=== PATIENT | female | born 2000 | race Hispanic/Latino ===

== ENCOUNTER 2020-05-22 15:13 | Emergency (ER) | payer SELFPAY ==
[~2020-05-22] VITALS: Ht 160 cm; Wt 52.2 kg
[2020-05-22] MEDS ORDERED: PENICILLIN G BENZATHINE LA 1.2 MU TBX IM STA (15:28)
--- NOTE | 2020-05-22 15:29 | Emergency Department Note ---
History of Present Illnes History of Present Illness Chief Complaint: General Medicine Complaints History of Present Illness This is a 19 year old female arrives to the ED with complaints of fever and sore throat for several days, denies any drooling, shortness of breath or cough. Historian: Patient Arrival Mode: Car Onset (how long ago): day(s) Severity: mild Duration (how long): day(s) Progression: unchanged Chronicity: new Associated symptoms: Reports fever/chills; Denies shortness of breath Past Medical/Family History Physician Review I have reviewed the patient's past medical and family history. Any updates have been documented here. Past Medical History Recent Fever: Yes Clinical Suspicion of Infectio: Yes New/Unexplained Change in Ment: No Past Medical History: None Other Medical History: IRREGULAR HEART BEAT Past Surgical History: None Social History Smoking Cessation: Never Smoker Counseling Performed: No Alcohol Use: None Any Illegal Drug Use: No Physically hurt or threatened: No Other Last Tetanus: Y Any Pre-Existing Lines (PICC,: No (.) Review of Systems Review of Systems Constitutional: Reports no symptoms EENTM: Reports as per HPI, Reports throat pain Cardiovascular: Reports no symptoms Respiratory: Reports no symptoms Gastrointestinal: Reports no symptoms Genitourinary: Reports no symptoms Musculoskeletal: Reports no symptoms Integumentary: Reports no symptoms Neurological: Reports no symptoms Psychological: Reports no symptoms Endocrine: Reports no symptoms Hematological/Lymphatic: Reports no symptoms Physical Exam Related Data Allergies: Coded Allergies: No Known Allergies (Unverified , 07/24/15) Triage Vital Signs Vital Signs Date Time Temp Pulse Resp B/P (MAP) Pulse Ox O2 Delivery O2 Flow Rate FiO2 05/22/20 15:20 99.9 105 20 117/69 98 Room Air Vital signs reviewed: Yes Physical Exam CONSTITUTIONAL Constitutional: Present well-developed, Present well-nourished HENT HENT: Present normocephalic, Present atraumatic, Present oropharynx clear/moist, Present nose normal, Present tonsillar excudate HENT L/R: Present left ext ear normal, Present right ext ear normal EYES Eyes: Reports PERRL, Reports conjunctivae normal NECK Neck: Present ROM normal PULMONARY Pulmonary: Present effort normal, Present breath sounds normal CARDIOVASCULAR Cardiovascular: Present regular rhythm, Present heart sounds normal, Present capillary refill normal, Present normal rate GASTROINTESTINAL Abdominal: Present soft, Present nontender, Present bowel sounds normal GENITOURINARY Genitourinary: Present exam deferred SKIN Skin: Present warm, Present dry MUSCULOSKELETAL Musculoskeletal: Present ROM normal NEUROLOGICAL Neurological: Present alert, Present oriented x 3, Present no gross motor or sensory deficits PSYCHOLOGICAL Psychological: Present mood/affect normal, Present judgement normal Assessment & Plan Medical Decision Making MDM No history of immunocompromise. Nontoxic appearance. Patient euvolemic with no trismus. No airway compromise. Able to tolerate PO. Given History and Exam I have low suspicion for this presentation being caused by CARTOGRAPHIC DESIGNER, RPA, Ludwigs, Epiglottitis or Bacterial Tracheitis, EBV, acute HIV, Strep throat. Rx: Conservative care Disposition: Discharge home with prompt outpatient PCP follow up; return precautions discussed. HPI Denies cough. No measured fevers. No steroid use or immunosuppressive state. No pus from mouth. Tolerating secretions. Otherwise well with no changes to vision, no dysphonia, no dysphagia. Assessment & Plan Final Impression: (1) Strep pharyngitis Depart Disposition: HOME, SELF-CARE Last Vital Signs Date Time Temp Pulse Resp B/P (MAP) Pulse Ox O2 Delivery O2 Flow Rate FiO2 05/22/20 15:20 99.9 105 20 117/69 98 Room Air Home Meds Active Scripts Dexamethasone (DEXAMETHASONE) 4 Mg Tablet, 10 MG PO ONCE, #1 TAB Prov:JOSE KOEHLER DO 05/22/20 Acetaminophen/Codeine* (TYLENOL # 3*) 1 Ea Tab, 1 TAB PO Q8HR PRN for COUGH, #12 Prov:JOSE KOEHLER DO 05/22/20 JOSE KOEHLER DO May 22, 2020 15:29
[2020-05-22] MEDS ORDERED: TYLENOL # 31 EA PO (15:31)
[2020-05-22] MEDS ORDERED: DEXAMETHASONE4 MG PO (15:31)
[2020-05-22] MEDS ORDERED: PENICILLIN G BENZATHINE LA 1.2 MU TBX ONE (15:40)
--- OUTSIDE RECORDS SUMMARY | 2020-05-22 15:41 | XMS REPORT | Clinical Summary ---
Author Author [facility] Organization [facility] Address Unknown Phone Unavailable Care Team Providers Care Ichthyology Teacher Name Role Phone Asked, No Pcp PCP Unavailable Allergies No Known Active Allergies Medications End Date Status Medication Sig Dispensed Refills Start Date 08/14/2019 ibuprofen (ADVIL) 400 MG Take 1 tablet 20 tablet 0 tablet (400 mg 0 total) by mouth every 6 (six) hours as needed for mild pain or moderate pain for up to 15 days. 07/30/2019 Discontinued (Reorder) acetaminophen-codeine Take 1 tablet 20 tablet 0 (TYLENOL WITH CODEINE #3) by mouth 0 300-30 mg per every 6 (six) tabletIndications: acute hours as pain needed for severe pain for up to 20 doses .acute pain. 08/06/2019 acetaminophen-codeine Take 1 tablet 20 tablet 0 (TYLENOL WITH CODEINE #3) by mouth 0 300-30 mg per every 6 (six) tabletIndications: acute hours as pain needed for severe pain for up to 20 doses .acute pain. Active Problems Comments Yes No additional problems on file Encounters Care Team Description Date Type Specialty Ayush Tapia MD Closed fracture of malleolus of left ank le, initial encounter (Primary Dx) 07/30/2019 Emergency Emergency Medicine after 05/22/2019 Medical History Medical History Date Comments Anxiety Alcohol abuse Depression Suicide attempt (HCC) Social History Date Tobacco Use Types Packs/Day Years Used Current Every Day Smoker Smokeless Tobacco: Never Used Drinks/Week oz/Week Comments Alcohol Use Yes Comments Yes Sex Assigned at Date Recorded Not on file Obstetrics History Term Pre Abrt (TAB) (SAB) (Ect) Mult Lvng Comments Grav Para 1 Date GA Total Labor Labor/2nd/3rd Weight Sex Delivery Anes PTL Екатерина A1 A5 Name Clin Outcome Current Growth Chart Information Head Circum Date Age Height Weight 03/01/2018 17 years 162.6 cm (5' 4") Last Filed Vital Signs Reading Time Taken Comments Vital Sign 110/63 07/30/2019 8:00 PM RELIEF MANAGER Blood Pressure 76 07/30/2019 8:00 PM RELIEF MANAGER Pulse 37.2 C (99 F) 07/30/2019 8:00 PM RELIEF MANAGER Temperature 16 07/30/2019 8:00 PM RELIEF MANAGER Respiratory Rate 99% 07/30/2019 8:00 PM RELIEF MANAGER Oxygen Saturation - - Inhaled Oxygen Concentration - - Weight - - Height - - Body Mass Index Plan of Treatment Health Maintenance Due Date Last Done Comments CHLAMYDIA SCREENING 2016 INFLUENZA VACCINE 01/31/2020 Procedures Comments Procedure Name Priority Date/Time Associated Diag nosis KS APPLY LOWER LEG SPLINT Routine 07/30/2019 8:20 PM RELIEF MANAGER XR FOOT 3+ VW LEFT STAT 07/30/2019 5:14 PM RELIEF MANAGER XR ANKLE 3+ VW LEFT STAT 07/30/2019 5:13 PM RELIEF MANAGER after 05/22/2019 Results * Splint Application (07/30/2019 8:20 PM RELIEF MANAGER) Narrative Performed At Faina Doran NP-C 08/01/19 2:03 AM Splint Application Performed by: Faina Doran NP-C Authorized by: Ayush Tapia MD Consent: Consent obtained: Verbal Consent given by: Patient Risks discussed: Distal paresthesia , pain, skin discoloration and swelling Pre-procedure details: Sensation: Normal Procedure details: Laterality: Left Location: Ankle Ankle: L ankle Cast type: Short leg Splint type: Ankle stirrup Supplies: Elastic bandage, cotton p adding and Ortho-Glass Post-procedure details: Pain: Improved Sensation: Normal Patient tolerance of procedure: [place] erated well, no immediate complications * XR Foot 3+ Vw Left (07/30/2019 5:14 PM RELIEF MANAGER) Specimen Narrative Performed At EXAMINATION: XR FOOT 3 VW LEFT, XR ANKLE 3 VW L EFT [facility] CLINICAL HISTORY: fracture COMPARISON: Left ankle radiographs IMPRESSION: Nondisplaced posterior malleolus fractu re involving less than 10% of the articular surface. Suspected curvilinea r nondisplaced avulsion fracture of the inferior malleolus only seen on the ank le mortise view. Ankle mortise appears intact on this no nweightbearing examination. Normal osseous mineralization. Joint spaces ap pear preserved. Soft tissue swelling about the ankle, predominantly laterall y. [facility]-[id number] Procedure Note Interface, Radiology Results Incoming - 07/30/2019 5:21 PM RELIEF MANAGER EXAMINATION: XR FOOT 3 VW LEFT, XR ANKLE 3 VW LEFT CLINICAL HISTORY: fracture COMPARISON: Left ankle radiographs 06/18/2016 IMPRESSION: Nondisplaced posterior malleolus fracture involving less than 10% of the articular surface. Suspected curvilinear nondisplaced avulsion fracture of the inferior malleolus only seen on the ankle mortise view. Ankle mortise appears intact on this nonweightbearing examination. Normal osseous mineralization. Joint spaces appear preserved. Soft tissue swelling about the ankle, predominantly laterally. [facility]-[id number] Performing Organization Address [facility] Code P zaira Number [facility] [address] [place] [address] * XR Ankle 3+ Vw Left (07/30/2019 5:13 PM RELIEF MANAGER) Specimen Narrative Performed At EXAMINATION: XR FOOT 3 VW LEFT, XR ANKLE 3 VW L EFT [facility] CLINICAL HISTORY: fracture COMPARISON: Left ankle radiographs IMPRESSION: Nondisplaced posterior malleolus fractu re involving less than 10% of the articular surface. Suspected curvilinea r nondisplaced avulsion fracture of the inferior malleolus only seen on the ank le mortise view. Ankle mortise appears intact on this no nweightbearing examination. Normal osseous mineralization. Joint spaces ap pear preserved. Soft tissue swelling about the ankle, predominantly laterall y. [facility]-[id number] Procedure Note [facility], Radiology Results Incoming - 07/30/2019 5:21 PM RELIEF MANAGER EXAMINATION: XR FOOT 3 VW LEFT, XR ANKLE 3 VW LEFT CLINICAL HISTORY: fracture COMPARISON: Left ankle radiographs 06/18/2016 IMPRESSION: Nondisplaced posterior malleolus fracture involving less than 10% of the articular surface. Suspected curvilinear nondisplaced avulsion fracture of the inferior malleolus only seen on the ankle mortise view. Ankle mortise appears intact on this nonweightbearing examination. Normal osseous mineralization. Joint spaces appear preserved. Soft tissue swelling about the ankle, predominantly laterally. [facility]-[id number] Performing Organization Address City/State/ZIP Code P zaira Number [facility] [address] [place] [address] after 05/22/2019 Insurance Type Payer Benefit Subscriber ID Effective Phone Address Plan / Dates Group O UHC MEDICAID UNITED[employer]AL [id number] 2019-P ARIC [place] gaeileen [facility] Advance Directives For more information, please contact: [phone] Patient Mix Chemist Explanation Type Date Recorded Advance Directives, 07/30/2019 6:23 PM Living Will and Medical Power of Machine Rope Maker Advance Directives, 03/01/2018 6:30 PM Living Will and Medical Power of Machine Rope Maker
--- OUTSIDE RECORDS SUMMARY | 2020-05-22 15:41 | XMS REPORT | Continuity of Care Document ---
Author Author [facility] t Organization [facility] Address [address] [place] [address] Phone Unavailable Care Team Providers Care Qa Intern Name Role Phone Asked, Pcp No PCP Unavailable Gretchen Wilson MD, Panfilo Peacock Attphys Payers Payer Name Policy Type Policy Number Effective Date Expiration Date Steph sosa [facility] [id number] 2019-Pr esentHMO [id number] 2019 00:00:00 Roberto Rooney Problems This patient has no known problems. Allergies, Adverse Reactions, Alerts Allergy Name Allergy Type Status Severity Reaction(s) Onset Date Inacti ve Date Treating Clinician Comments Source No Known Allergies DA Active U 2020-02-10 00:00:00 [facility] No Known Contrast Allergies DA Active U 2003-07-13 00:00: 00 [facility] No Known Drug Allergies DA Active U 2003-07-13 00:00:00 [facility] No Known Food Allergies DA Active U 2003-07-13 00:00:00 [facility] No Known Other Allergies DA Active U 2003-07-13 00:00:00 [facility] Social History Social Habit Start Date Stop Date Quantity Comments Source ASSERTION Mejia Method ist Sex Assigned At Darcy Rooney Tobacco use and exposure 2019-07-30 00:00:00 2019-07-30 00:00:00 Olivier kaur used Roberto Rooney Alcohol intake 2019-07-30 00:00:00 2019-07-30 00:00:00 Current drinker of alcohol (finding) Roberto Rooney Smoking Status Start Date Stop Date Source Current every day smoker 2019-07-30 00:00:00 Darcy valdez [facility] Medications Ordered Medication Name Filled Medication Name Start Date Stop Da te Current Medication? Ordering Clinician Indication Dosage Frequency Signature (SIG) Comments Components Source ibuprofen (ADVIL) 400 MG tablet 2019-07-30 00:00:00 23:59:00 No 400mg Q6H Take 1 tablet (400 m g total) by mouth every 6 (six) hours as needed for mild pain or moderate pain for up to 15 days. Roberto Rooney acetaminophen-codeine (TYLENOL WITH CODEINE #3) 300-30 mg pe r tablet 2019-07-30 00:00:00 2019-08-06 23:59:00 No acute pain 1{tbl} Q6H Take 1 tablet by mouth every 6 (six) hours as needed for severe pain for up to 20 doses .acute pain. Roberto Rooney acetaminophen-codeine (TYLENOL WITH CODEINE #3) 300-30 mg pe r tablet 2019-07-30 00:00:00 2019-07-30 00:00:00 No acute pain 1{tbl} Q6H Take 1 tablet by mouth every 6 (six) hours as needed for severe pain for up to 20 doses .acute pain. Roberto Rooney Vital Signs Vital Name Observation Time Observation Value Comments Source Systolic blood pressure 2019-07-30 20:00:00 110 mm[Hg] Roberto Rooney Diastolic blood pressure 2019-07-30 20:00:00 63 mm[Hg] Roberto Rooney Heart rate 2019-07-30 20:00:00 76 /min Roberto Rooney Body temperature 2019-07-30 20:00:00 37.22 Samara Josue ton Denominational Respiratory rate 2019-07-30 20:00:00 16 /min [place] [facility] Oxygen saturation in Arterial blood by Pulse oximetry 07-30 20:00:00 99 /min Roberto Rooney Procedures Procedure Date / Time Performed Performing Clinician Sourc e [place] APPLY LOWER LEG SPLINT 2019-07-30 20:20:00 Faina Doran XR FOOT 3+ VW LEFT 2019-07-30 17:14:20 Faina Doran XR ANKLE 3+ VW LEFT 2019-07-30 17:13:48 Faina Doran sathya [employer] Plan of Care Planned Activity Planned Date Details Comments Source Future Scheduled Test 2020-01-31 00:00:00 INFLUENZA VACCINE [code = INFLUENZA VACCINE] Roberto Rooney Future Scheduled Test 2016 00:00:00 CHLAMYDIA SCREENIN G [code = CHLAMYDIA SCREENING] Roberto Rooney Encounters Start Date/Time End Date/Time Encounter Type Admission Type [facility] Care Department Encounter ID Source 2019-07-30 00:00:00 2019-07-30 00:00:00 Emergency SAYRA RUIZ [facility] [id number] Roberto Rooney Results Test Description Test Time Test Comments Results Result Comments Source Splint Application 2019-07-30 20:20:00 Jason Doran, WOODWORKING CRAFTSMAN-C 08/01/2019 2:03 AMSplint ApplicationPerformed by: Faina Doran WOODWORKING CRAFTSMAN-CAuthorized by: Sayra Tapia MD Consent: Consent obtained: Verbal Consent given by: Patient Risks discussed: Distal paresthesia, pain, skin discoloration and swellingPre-procedure details: Sensation: NormalProcedure details: Laterality: Left Location: Ankle Ankle: L ankle Cast type: Short leg Splint type: Ankle stirrup Supplies: Elastic bandage, cotton padding and Eztur-[id number]-[id number] details: Pain: Improved Sensation: Normal Patient tolerance of procedure: Tolerated well, no immediate complications Mejia Denominational XR Ankle 3+ Vw Left 2019-07-30 17:18:24 Inter face, Radiology Results 07/30/2019 5:21 PM CSTEXAMINATION: XR FOOT 3 VW LEFT, XR ANKLE 3 VW LEFTCLINICAL HISTORY: fractureCOMPARISON: Left ankle radiographs 06/18/2016IMPRESSION:Nondisplaced posterior malleolus fracture involving less than 10% of the articular surface. Suspected curvilinear nondisplaced avulsion fracture of the inferior malleolus only seen on the ankle mortise view. Ankle mortise appears intact on this nonweightbearing examination. Normal osseous mineralization. Joint spaces appear preserved. Soft tissue swelling about the ankle, predominantly laterally.[facility]-[id number] Roberto Rooney XR Foot 3+ Vw Left 2019-07-30 17:18:24 Hm Interf stan, Radiology Results Incoming - 07/30/2019 5:21 PM CSTEXAMINATION: XR FOOT 3 VW LEFT, XR ANKLE 3 VW LEFTCLINICAL HISTORY: fractureCOMPARISON: Left ankle radiographs 06/18/2016IMPRESSION:Nondisplaced posterior malleolus fracture involving less than 10% of the articular surface. Suspected curvilinear nondisplaced avulsion fracture of the inferior malleolus only seen on the ankle mortise view. Ankle mortise appears intact on this nonweightbearing examination. Normal osseous mineralization. Joint spaces appear preserved. Soft tissue swelling about the ankle, predominantly laterally.[facility]-[id number] [facility] - XR ANKLE 3 + V LT 2019-07-30 00:44:00 FAX: Tu Moore [facility] [phone] [place]: St: REG -- Name: MARY MEHTA [facility] : 2000 Age/S: 19/F [address] [facility] [facility] Unit #: [id number] Loc: [place] [address] Phys: Tu Rader [facility] Acct: [id number] Dis Date: Status: REG ER PHONE #: [phone] Exam Date: 07/29/2019 4808 FAX #: [phone] Reason: lateral pain s/p "stepped wrong" EXAMS: CPT CODE: [id number] XR ANKLE 3 + [place] [id number] AFTER HOURS SERVICE ON: 07/30/2019 12:42 AM Left Foot, 3 Views Location Code M12 History: lateral pain s/p "stepped wrong" Findings: There is normal anatomic alignment. No fracture, dislocation or avulsion fragments are seen. Articular surfaces are within normal limits for patient's age. Impression: Unremarkable foot. AFTER HOURS SERVICE ON: 07/30/2019 12:42 AM Left Ankle, 3 Views Location Code M12 History: lateral pain s/p "stepped wrong" Findings: There is a 1.4 cm avulsion fracture of the posterior malleolus. Medial and lateral malleoli are intact. There is lateral soft tissue swelling. Dome of the talus and tibiotalar articulation are unremarkable. Impression: Posterior malleolar avulsion fracture. PAGE 1 Signed Report (CONTINUED) FAX: Tu Moore [facility] [phone] [place]: St: REG -- Name: MARY MEHTA [facility] : 2000 Age/S: 19/F [address] [facility] Unit #: [id number] Loc: [place] [address] Phys: Tu Tyson [facility] Acct: [id number] Dis Date: Status: REG ER PHONE #: [phone] Exam Date: 07/29/2019 2355 FAX #: [phone] Reason: lateral pain s/p "stepped wrong" EXAMS: CPT CODE: [id number] XR ANKLE 3 + [place] [address] <Continued> at 0044 Reported and signed by: Shawn Teran M.D. CC: Tu Rader Technologist: Nela Arguellord Date/Time/By: 07/30/2019 (43) : By: [email or web address] Orig Print D/T: S: 07/30/2019 (46) PAGE 2 Signed Report - XR FOOT 3 + V LT 2019-07-30 00:44:00 FAX: Tu Moore [facility] [phone] [place]: B St: REG -- Name: MARY MEHTA [facility] : 2000 Age/S: 19/F [address] Unit #: [id number] Loc: [place] [address] Phys: Tu Rader [facility] Acct: [id number] Dis Date: Status: REG ER PHONE #: [phone] Exam Date: 07/29/2019 2355 FAX #: [phone] Reason: lateral pain s/p "stepped wrong" EXAMS: CPT CODE: [id number] XR FOOT 3 + [place] [id number] AFTER HOURS SERVICE ON: 07/30/2019 12:42 AM Left Foot, 3 Views Location Code M12 History: lateral pain s/p "stepped wrong" Findings: There is normal anatomic alignment. No fracture, dislocation or avulsion fragments are seen. Articular surfaces are within normal limits for patient's age. Impression: Unremarkable foot. AFTER HOURS SERVICE ON: 07/30/2019 12:42 AM Left Ankle, 3 Views Location Code M12 History: lateral pain s/p "stepped wrong" Findings: There is a 1.4 cm avulsion fracture of the posterior malleolus. Medial and lateral malleoli are intact. There is lateral soft tissue swelling. Dome of the talus and tibiotalar articulation are unremarkable. Impression: Posterior malleolar avulsion fracture. PAGE 1 Signed Report (CONTINUED) FAX: Tu Moore [facility] [phone] [place]: B St: REG -- Name: MARY MEHTA [facility] : 2000 Age/S: 19/F [address] [facility] Unit #: [id number] Loc: [place] [address] Phys: Tu Tyson MEMBERSHIP COORDINATOR Acct: [id number] Dis Date: Status: REG ER PHONE #: [phone] Exam Date: 07/29/2019 7999 FAX #: [phone] Reason: lateral pain s/p "stepped wrong" EXAMS: CPT CODE: [id number] XR FOOT 3 + [place] [id number] <Continued> at 0044 Reported and signed by: Shawn Teran M.D. CC: Tu Rader Technologist: Nela Jack Trnтатьянаrd Date/Time/By: 07/30/2019 (004) : By: [email or web address] Orig Print D/T: S: 07/30/2019 (004) PAGE 2 Signed Report
== END 2020-05-22 15:58 | disposition home or self-care (01) ==
LOC: ER 15:39
DX: J02.0 Streptococcal pharyngitis (principal); R50.9 Fever, unspecified
CPT/HCPCS: 99283; J0561

== ENCOUNTER 2021-07-14 17:34 | Emergency (ER) | payer SELFPAY ==
[~2021-07-14] VITALS: Ht 160 cm; Wt 52.2 kg
[~2021-07-14 17:34] MED LIST: DEXAMETHASONE4 MG PO; TYLENOL # 31 EA PO
== END 2021-07-14 19:10 | disposition home or self-care (01) ==
LOC: ER 17:39
DX: U07.1 COVID-19 (principal); J02.9 Acute pharyngitis, unspecified; R51.9 Headache, unspecified
CPT/HCPCS: 83518; 87070; 99282; U0002